=== PATIENT | female | born 1985 | race Two or more races ===

== ENCOUNTER → 2016-05-13 | Outpatient (REF) | payer OTHER ==
[~2016-05-13] MED LIST: ACET50TA PO; ANUS2.5C2 PR; DOCU10ELUD PO; IBUP80TA PO; MOM30SS PO; PRENTAB74 PO
== END ==
LOC: M LAB REF 16:51
PROVIDERS: ATTEND Advanced Practice Midwife
DX: Z12.4 Encounter for screening for malignant neoplasm of cervix (principal)